=== PATIENT | male | born 1940 | race Caucasian/White ===

== ENCOUNTER 2016-11-08 06:06 | Outpatient (CLI) | payer OTHER ==
[2016-11-08 06:24] LABS: HEMATOCRIT 36.4 % (42.0-52.0); HEMOGLOBIN 12.9 g/dl (14.0-18.0); MEAN CORPUSCULAR HEMOGLOBIN 30.9 pg (27.0-31.0); MEAN CORPUSCULAR HGB CONC 35.4 (31.8-35.4); MEAN CORPUSCULAR VOLUME 87.1 fl (80.0-94.0); RED BLOOD COUNT 4.18 10^6/ul (4.70-6.10); WHITE BLOOD COUNT 4.33 K/ul (4.2-10.2)
[2016-11-08 06:55] LABS: ALBUMIN 3.5 g/dL (3.4-5.0); ALBUMIN/GLOBULIN RATIO 1.3; ANION GAP 8.8; BILIRUBIN,TOTAL 1.08 mg/dL (0.00-1.20); BUN/CREATININE RATIO 17.44; CALCIUM 9.2 mg/dL (8.2-10.2); CHOL/HDL RATIO 2.6 (4.5-6.4); CREATININE 0.86 mg/dL (0.60-1.10); POTASSIUM 3.8 mmol/L (3.5-5.1); TOTAL PROTEIN 6.2 g/dL (5.8-8.1)
== END 2016-11-08 06:07 | disposition home or self-care (01) ==
LOC: LAB 06:06
PROVIDERS: ATTEND Family Medicine
DX: R74.8 Abnormal levels of other serum enzymes (principal); D40.0 Neoplasm of uncertain behavior of prostate; E03.9 Hypothyroidism, unspecified; E78.00 Pure hypercholesterolemia, unspecified
CPT/HCPCS: 36415; 80053; 80061; 83540; 85027

== ENCOUNTER 2017-05-09 06:02 | Outpatient (CLI) ==
[2017-05-09 06:25] LABS: HEMATOCRIT 36.1 % (42.0-52.0); HEMOGLOBIN 12.6 g/dl (14.0-18.0); MEAN CORPUSCULAR HEMOGLOBIN 30.6 pg (27.0-31.0); MEAN CORPUSCULAR HGB CONC 34.9 (31.8-35.4); MEAN CORPUSCULAR VOLUME 87.6 fl (80.0-94.0); RED BLOOD COUNT 4.12 10^6/ul (4.70-6.10); WHITE BLOOD COUNT 4.76 K/ul (4.2-10.2)
[2017-05-09 07:07] LABS: ALBUMIN 3.4 g/dL (3.4-5.0); ALBUMIN/GLOBULIN RATIO 1.17; ANION GAP 13.1; BILIRUBIN,TOTAL 0.77 mg/dL (0.00-1.20); BUN/CREATININE RATIO 14.1; CALCIUM 9.3 mg/dL (8.2-10.2); CHOL/HDL RATIO 2.6 (4.5-6.4); CREATININE 0.78 mg/dL (0.60-1.10); POTASSIUM 4.1 mmol/L (3.5-5.1); TOTAL PROTEIN 6.3 g/dL (5.8-8.1)
== END 2017-05-09 06:03 | disposition home or self-care (01) ==
LOC: LAB 06:02
PROVIDERS: ATTEND Family Medicine
DX: E03.9 Hypothyroidism, unspecified (principal); D40.0 Neoplasm of uncertain behavior of prostate; M81.0 Age-related osteoporosis without current pathological fracture; E78.00 Pure hypercholesterolemia, unspecified; M19.90 Unspecified osteoarthritis, unspecified site
CPT/HCPCS: 36415; 80053; 80061; 82306; 84439; 84443; 85027

== ENCOUNTER 2017-11-27 06:08 | Outpatient (CLI) | payer OTHER | END 2017-11-27 06:09 | disposition home or self-care (01) | LOC: LAB 06:08 | PROVIDERS: ATTEND Family Medicine | DX: D40.0 Neoplasm of uncertain behavior of prostate (principal); D64.9 Anemia, unspecified; E03.9 Hypothyroidism, unspecified; E78.00 Pure hypercholesterolemia, unspecified; H60.322 Hemorrhagic otitis externa, left ear | CPT/HCPCS: 36415; 80053; 80061; 82607; 82746; 83540; 84439; 84443; 85027 ==

== ENCOUNTER 2023-04-23 04:49 | Inpatient (IN) ==
--- NOTE | 2023-04-23 05:47 | ED.PDOC ---
General <KUNAL ALEXANDER MD - Last Filed: 04/23/23 08:10> ED Provider: Dr. KUNAL ALEXANDER Chief Complaint: Fall Stated Complaint: Patient is an 83-year-old male who comes to the emergency department with complaints of losing balance when he got up this morning to go to the bathroom and fell forward. He states that he could not get up after the fall hence called EMS for help. He states he has bruising on the elbows bilaterally and lower back pain. He states that he did not hit his head and denies any headache or neck pain. He states that he is a frequent jamshid due to poor balance. He states he falls about once a week. He denies any significant pain right now to need any medication. He states he recently had trigger finger surgery on the left hand. Time Seen by Provider: 04/23/23 05:34 Mode of Arrival: Ambulance Information Source: Patient Primary Care Provider: LYDIA BEARDEN Nursing and Triage Documentation Reviewed and Agree: Yes Trauma/Injury Complaint Exam <KUNAL ALEXANDER MD - Last Filed: 04/23/23 08:10> Trauma Complaint/Exam Location of Pain or Injury: Reports Back, RLE (Elbow) and LLE (Elbow area) Mechanism of Injury: Reports Fall (Due to loss of balance) Symptoms Are: Still present Initial Severity: Moderate Current Severity: Mild Aggravating: Reports Movement and Palpation Alleviating: Reports Rest Associated Signs and Symptoms: Reports Bruising; Denies LOC, Confusion, Memory loss, Lethargy, Vomiting, Bleeding, Swelling, Extremity disuse, Painful respir ation, Hoarseness, Dysphagia, Hemoptysis or Significant blood loss [place]ow Coma Scale (see protocol): 15 Trauma Findings: Present Limited ROM; Absent [place] eyes, Hemotympanum, Nasal deformity, Dental tenderness, Dental injury, Dental malocclusion, Neck tenderness, Neck spasm, SubQ Air, Crepitus, Airway obstructed, Trachea displaced, Labored respirations, Decreased breath sounds, Muffled heart sounds, Weak pulses, Absent pulses or Gross blood Skin Findings: Present Contusion Differential Diagnoses: Abrasion, Contusions, Fracture, Sprain and Strain Review of Systems <KUNAL ALEXANDER MD - Last Filed: 04/23/23 08:10> Review Of Systems Constitutional: Reports No symptoms Eyes: Reports No symptoms and Other (Hard of hearing) Ears, Nose, Mouth, Throat: Reports No symptoms Respiratory: Reports No symptoms Cardiac: Reports No symptoms GI: Reports No symptoms : Reports No symptoms Musculoskeletal: Reports Back pain, Joint pain and Muscle pain Skin: Reports Bruising Neurological: Reports No symptoms Endocrine: Reports No symptoms All Other Systems: Reviewed and Negative PFSH <KUNAL ALEXANDER MD - Last Filed: 04/23/23 08:10> Medical History (Updated 04/23/23 @ 09:45 by MARY RICH RN) Bladder cancer C67.9 - Malignant neoplasm of bladder, unspecified (ICD-10) Falls W19.XXXA - Unspecified fall, initial encounter (ICD-10) Hypertension I10 - Essential (primary) hypertension (ICD-10) Prostate cancer C61 - Malignant neoplasm of prostate (ICD-10) Seizure R56.9 - Unspecified convulsions (ICD-10) Trigger finger of left hand M65.30 - Trigger finger, unspecified finger (ICD-10) Family History (Updated 04/23/23 @ 09:46 by MARY RICH RN) Mother Cancer FATHER Myocardial infarct Social History (Updated 04/23/23 @ 09:48 by MARY RICH RN) Smoking and tobacco status: Former smoker Surgical History (Updated 04/23/23 @ 09:45 by MARY RICH RN) History of tonsillectomy Z90.89 - Acquired absence of other organs (ICD-10) Hx of appendectomy Z90.49 - Acquired absence of other specified parts of digestive tract (ICD- 10) Hx of knee surgery Z98.890 - Other specified postprocedural states (ICD-10) Physical Exam <KUNAL ALEXANDER MD - Last Filed: 04/23/23 08:10> Physical Exam Appearance: Reports Well-appearing Ill-appearing: None Pain Distress: Mild Eyes: Reports EOMI and Conjunctiva clear ENT: Reports Nose normal and Oropharynx normal Neck: Supple (Tenderness to palpation) Respiratory: Reports Airway patent, Breath sounds clear, Breath sounds diminished (on the right ) and Respirations nonlabored Cardiovascular: Reports RRR, Pulses normal and No rub GI/: Reports Soft, Nontender and No masses Musculoskeletal: Reports Limited ROM (Specially lower back.) Skin: Reports Warm and Dry Neurological: Reports Motor intact, Alert, Oriented and Other (Decreased hearing) Psychiatric: Reports Affect appropriate and Mood appropriate Interpretation <KUNAL ALEXANDER MD - Last Filed: 04/23/23 08:10> EKG Interpretation EKG Interpretation By: ED Physician Time of EKG #1: 07:03 Rate: Normal Rhythm: Sinus Ectopy: None [place]: [place] (At -17 degrees) ST Segment: Normal Interpretation: Normal sinus rhythm normal EKG with no signs of ischemia. Radiology Interpretation Radiology Interpretation By: Radiologist Radiology Results: Positive (Right lung consolidation.) Exam Interpreted: CT Scan Radiology Interpretation By: Radiologist Radiology Results: Negative Exam Interpreted: Other (Elbow x-rays) Physician Notification <KUNAL ALEXANDER MD - Last Filed: 04/23/23 08:10> Case Discussed Endorsed To/Discussed With: Trixie Time of Discussion: 07:00 Critical Care Note <KUNAL ALEXANDER MD - Last Filed: 04/23/23 08:10> Critical Care Note Total Critical Care Time (mins): 0 Course <KUNAL ALEXANDER MD - Last Filed: 04/23/23 08:10> Course 04/23/23 07:02 04/23/23 07:02 Orders, Labs, Meds: Lab Review 04/23/23 04/23/23 07:02 08:00 WBC 10.19 RBC 3.52 L Hgb 10.5 L Hct 30.7 L MCV 87.2 MCH 29.8 MCHC 34.2 RDW Coeff of Angelita 14.5 Plt Count 172 Immature Gran % (Auto) 0.5 Neut % (Auto) 83.0 H Lymph % (Auto) 3.6 L [place] % (Auto) 12.6 H Eos % (Auto) 0.2 Baso % (Auto) 0.1 Neut # (Auto) 8.5 H Lymph # (Auto) 0.4 L [place] # (Auto) 1.3 Eos # (Auto) 0.0 Baso # (Auto) 0.0 Immature Gran # (Auto) 0.1 Sodium 123.6 L Potassium 3.94 Chloride 88.9 L Carbon Dioxide 26.6 Anion Gap 12.04 BUN 11.7 Creatinine 0.55 L Estimated GFR (MDRD) 142.00 BUN/Creatinine Ratio 21.27 Glucose 106.3 H Lactic Acid 1.04 Calcium 9.00 Total Bilirubin 0.91 AST 33.1 ALT 11.7 Alkaline Phosphatase 64.5 Total Creatine Kinase 55.7 Troponin I 0.022 Total Protein 6.73 Albumin 3.62 Globulin 3.11 Albumin/Globulin Ratio 1.16 Procalcitonin < 0.05 SARS CoV-2 RNA Rapid MARK Negative Orders Category Date Time Status EKG-(ED ONLY) Stat CARDIO 04/23/23 06:42 Completed ED LENS GRINDER ROUGH APPLIED .ONCE EMERGENCY 04/23/23 06:42 Active ED IV/MEDIPORT/POWERPORT .ONCE EMERGENCY 04/23/23 06:42 Active BLOOD CULTURE (ED ONLY) Stat LAB 04/23/23 07:02 Received CBC W/ AUTO DIFF Stat LAB 04/23/23 07:02 Completed COMPREHENSIVE METABOLIC PANEL Stat LAB 04/23/23 07:02 Completed COVID [SARS COV-2 RNA RAPID MARK] Stat LAB 04/23/23 08:00 Completed CREATINE KINASE Stat LAB 04/23/23 07:02 Completed LACTIC ACID Stat LAB 04/23/23 07:02 Completed PROCALCITONIN Stat LAB 04/23/23 07:02 Completed TROPONIN I Stat LAB 04/23/23 07:02 Completed 0.9 % Sodium Chloride [Saline Flush] Meds 04/23/23 06:42 Active 1 syr IVF PRN PRN CT CHEST W/O CONTRAST Stat RADS 04/23/23 05:[address] LUMBAR SPINE W/O CONTRAST Stat RADS 04/23/23 05:[address] PELVIS W/O CONTRAST Stat RADS 04/23/23 05:40 Completed ELBOW, LEFT MIN 3 VIEWS Stat RADS 04/23/23 05:40 Completed ELBOW, RIGHT MIN 3 VIEWS Stat RADS 04/23/23 05:40 Completed Medications Generic Name Dose Route Start Last Admin Trade Name Freq PRN Reason Stop Dose Admin Acetaminophen 650 mg 04/23/23 08:30 Acetaminophen 325 Mg Tablet PO Q4H PRN Mild Pain Levofloxacin/Dextrose 750 mg in 150 mls @ 100 mls/hr 04/23/23 09:00 04/23/23 09:24 Levaquin 750 Mg/150 Ml D5w IV 04/26/23 08:59 100 mls/hr DAILY ISAURO Administration Sodium Chloride 500 mls @ 30 mls/hr 04/23/23 12:00 Sodium Chloride 3% IV .[id number] ISAURO Sodium Chloride 1 syr 04/23/23 06:42 0.9% Sodium Chloride 10 Ml Disp.Syrin IVF PRN PRN To flush IV Discontinued Medications Generic Name Dose Route Start Last Admin Trade Name Nickie PRN Reason Stop Dose Admin Sodium Chloride 1,000 mls @ 75 mls/hr 04/23/23 08:30 04/23/23 09:23 Sodium Chloride IV 75 mls/hr .[id number] ISAURO Administration Vital Signs: Temp Pulse Resp BP Pulse Ox 04/23/23 04:50 97.8 F 74 18 138/70 97 <TRIXIE AVILA MD - Last Filed: 04/23/23 11:59> Course Orders, Labs, Meds: Lab Review 04/23/23 04/23/23 07:02 08:00 WBC 10.19 RBC 3.52 L Hgb 10.5 L Hct 30.7 L MCV 87.2 MCH 29.8 MCHC 34.2 RDW Coeff of Angelita 14.5 Plt Count 172 Immature Gran % (Auto) 0.5 Neut % (Auto) 83.0 H Lymph % (Auto) 3.6 L [place] % (Auto) 12.6 H Eos % (Auto) 0.2 Baso % (Auto) 0.1 Neut # (Auto) 8.5 H Lymph # (Auto) 0.4 L [place] # (Auto) 1.3 Eos # (Auto) 0.0 Baso # (Auto) 0.0 Immature Gran # (Auto) 0.1 Sodium 123.6 L Potassium 3.94 Chloride 88.9 L Carbon Dioxide 26.6 Anion Gap 12.04 BUN 11.7 Creatinine 0.55 L Estimated GFR (MDRD) 142.00 BUN/Creatinine Ratio 21.27 Glucose 106.3 H Lactic Acid 1.04 Calcium 9.00 Total Bilirubin 0.91 AST 33.1 ALT 11.7 Alkaline Phosphatase 64.5 Total Creatine Kinase 55.7 Troponin I 0.022 Total Protein 6.73 Albumin 3.62 Globulin 3.11 Albumin/Globulin Ratio 1.16 Procalcitonin < 0.05 SARS CoV-2 RNA Rapid MARK Negative Orders Category Date Time Status EKG-(ED ONLY) Stat CARDIO 04/23/23 06:42 Completed ED LENS GRINDER ROUGH APPLIED .ONCE EMERGENCY 04/23/23 06:42 Active ED IV/MEDIPORT/POWERPORT .ONCE EMERGENCY 04/23/23 06:42 Active BLOOD CULTURE (ED ONLY) Stat LAB 04/23/23 07:02 Received CBC W/ AUTO DIFF Stat LAB 04/23/23 07:02 Completed COMPREHENSIVE METABOLIC PANEL Stat LAB 04/23/23 07:02 Completed COVID [SARS COV-2 RNA RAPID MARK] Stat LAB 04/23/23 08:00 Completed CREATINE KINASE Stat LAB 04/23/23 07:02 Completed LACTIC ACID Stat LAB 04/23/23 07:02 Completed PROCALCITONIN Stat LAB 04/23/23 07:02 Completed TROPONIN I Stat LAB 04/23/23 07:02 Completed 0.9 % Sodium Chloride [Saline Flush] Meds 04/23/23 06:42 Active 1 syr IVF PRN PRN CT CHEST W/O CONTRAST Stat RADS 04/23/23 05:[address] LUMBAR SPINE W/O CONTRAST Stat RADS 04/23/23 05:[address] PELVIS W/O CONTRAST Stat RADS 04/23/23 05:40 Completed ELBOW, LEFT MIN 3 VIEWS Stat RADS 04/23/23 05:40 Completed ELBOW, RIGHT MIN 3 VIEWS Stat RADS 04/23/23 05:40 Completed Medications Generic Name Dose Route Start Last Admin Trade Name Freq PRN Reason Stop Dose Admin Acetaminophen 650 mg 04/23/23 08:30 Acetaminophen 325 Mg Tablet PO Q4H PRN Mild Pain Levofloxacin/Dextrose 750 mg in 150 mls @ 100 mls/hr 04/23/23 09:00 04/23/23 09:24 Levaquin 750 Mg/150 Ml D5w IV 04/26/23 08:59 100 mls/hr DAILY ISAURO Administration Sodium Chloride 500 mls @ 30 mls/hr 04/23/23 12:00 Sodium Chloride 3% IV .[id number] ISAURO Sodium Chloride 1 syr 04/23/23 06:42 0.9% Sodium Chloride 10 Ml Disp.Syrin IVF PRN PRN To flush IV Discontinued Medications Generic Name Dose Route Start Last Admin Trade Name Freq PRN Reason Stop Dose Admin Sodium Chloride 1,000 mls @ 75 mls/hr 04/23/23 08:30 04/23/23 09:23 Sodium Chloride IV 75 mls/hr .[id number] ISAURO Administration Vital Signs: Temp Pulse Resp BP Pulse Ox 04/23/23 04:50 97.8 F 74 18 138/70 97 Discharge Plan Discharge Patient Disposition: ADMITTED INPATIENT Discharge Problem: Hyponatremia, Muscle weakness, At risk for falls, Pneumonia Did you review [place] [employer] for ALL controlled substances?: Not Applicable ED Provider: TRIXIE AVILA Condition: Stable <KUNAL ALEXANDER MD - Last Filed: 04/23/23 08:10> Physician Progress Note: [Discussed CT of the chest findings with patient and family regarding unexpected finding of consolidation consistent with pneumonia. It is also possible patient may have a neoplasm that cannot be excluded at this time and would need further testing including CT contrast of the chest. In the meantime we will do a work-up and treat for pneumonia. Patient however is not complaining of any cough or congestion but does admit to have lost some weight. He probably also needs to be admitted also due to multiple falls and weakness for to get physical therapy for strength training and falls prevention.] <TRIXIE AVILA MD - Last Filed: 04/23/23 11:59> Physician Progress Note: [Discussed CT of the chest findings with patient and family regarding unexpected finding of consolidation consistent with pneumonia. It is also possible patient may have a neoplasm that cannot be excluded at this time and would need further testing including CT contrast of the chest. In the meantime we will do a work-up and treat for pneumonia. Patient however is not complaining of any cough or congestion but does admit to have lost some weight. 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
--- NOTE | 2023-04-23 06:19 | CT ---
EXAM: CT PELVIS WITHOUT CONTRAST. HISTORY: Lower back pain from fall. PROCEDURE: Contiguous axial CT images of the pelvis without contrast with coronal and sagittal refor mats. FINDINGS: The visualized loops of bowel are normal in appearance. No free air in the pelvis. There is minimal low density free fluid layering in the dependent pelvis. The bladder is adequately filled and normal in appearance. There are surgical clips in the prostate gland. The bones are intact wit h no evidence of fracture. The joint spaces are maintained. There are degenerative changes in the s pine. Impression: No evidence of fracture. Minimal free fluid in the pelvis. All CT scans are performed using dose optimization techniques as appropriate to the performed exam an d include at least one of the following: Automated exposure control, adjustment of the mA and/or kV according t o size, and the use of iterative reconstruction technique.
--- NOTE | 2023-04-23 06:23 | CT ---
EXAM: CT OF THE LUMBAR SPINE WITHOUT CONTRAST. HISTORY: Fall. Pain. PROCEDURE: Contiguous axial CT images of the lumbar spine without contrast with multiplanar reformat s. All CT scans are performed using dose optimization techniques as appropriate to a performed exam including the following: Automated exposure control, Adjustment of the mA and/or kV according to alley ent size, Use of iterative reconstruction technique. FINDINGS: There is mild levoscoliosis of the lumbar spine. There is normal alignment of the lumbar v ertebral bodies and facets. There are chronic anterior wedge compression deformities of the T11-L1 v ertebral bodies. No evidence of acute fracture. There are is a 0.7 cm sclerotic lesion in the L5 ve rtebral body. There is multilevel disc space narrowing and vacuum disc phenomenon. There are disc osteophyte complexes at L4-5 and L5-S1. There is multilevel facet arthropathy. Impression: No evidence of acute fracture. Chronic anterior wedge compression deformities of the T11-L1 vertebral bodies. Disc osteophyte complexes at L4-5 and L5-S1. 0.7 cm sclerotic lesion in the L5 vertebral body. The differential diagnosis includes bone island an d metastatic disease. Normal alignment lumbar spine with degenerative changes as described. All CT scans are performed using dose optimization techniques as appropriate to the performed exam an d include at least one of the following: Automated exposure control, adjustment of the mA and/or kV according t o size, and the use of iterative reconstruction technique.
--- NOTE | 2023-04-23 06:30 | CT ---
EXAM: CT CHEST WITHOUT CONTRAST. HISTORY: Left rib pain and confusion. PROCEDURE: Contiguous axial CT images of the chest without contrast with coronal and sagittal reform ats. FINDINGS: The heart is enlarged. The thoracic aorta is within normal limits in size. There are enl arged pretracheal and subcarinal lymph nodes measuring up to 1.6 cm in short axis. There is mild pul monary edema. There is a moderate layering right pleural effusion. There are right lung infiltrates and consolidation, consistent with pneumonia. There is left basilar dependent atelectasis. There a re chronic anterior wedge compression deformities at multiple levels of the spine. There are sclerot ic lesions in the T5 and T6 vertebral bodies measuring up to 0.9 cm. Impression: Right lung consolidation, consistent with pneumonia. Cardiomegaly with mild pulmonary edema. Right pleural effusion as described. Lymphadenopathy as described which may be reactive or neoplastic. Sclerotic lesions in the thoracic spine as described, suspicious for metastatic disease. Left basilar dependent atelectasis. All CT scans are performed using dose optimization techniques as appropriate to the performed exam an d include at least one of the following: Automated exposure control, adjustment of the mA and/or kV according t o size, and the use of iterative reconstruction technique.
--- NOTE | 2023-04-23 06:49 | DI ---
EXAM: RIGHT ELBOW THREE VIEW. HISTORY: Fall. FINDINGS: The bones are intact with no evidence of fracture. The joint spaces are maintained. No so ft tissue abnormality. Impression: Negative right elbow.
--- NOTE | 2023-04-23 06:51 | DI ---
EXAM: LEFT ELBOW THREE VIEW. HISTORY: Trauma. FINDINGS: The bones are intact with no evidence of fracture. The joint spaces are maintained. There is degenerative spurring along the coronoid process of the ulna. No soft tissue abnormality. Impression: No evidence of fracture. Degenerative change as described.
[2023-04-23 07:07] LABS: BASOPHILS % (AUTO) 0.1 % (0.0-3.0); EOSINOPHILS % (AUTO) 0.2 % (0.0-7.0); HEMATOCRIT 30.7 % (42.0-52.0); HEMOGLOBIN 10.5 g/dl (14.0-18.0); IMMATURE GRANULOCYTE # (AUTO) 0.1 (0.0-1.0); IMMATURE GRANULOCYTE % (AUTO) 0.5 % (0.0-5.0); LYMPHOCYTES # (AUTO) 0.4 K/uL (0.60-3.4); LYMPHOCYTES % (AUTO) 3.6 (10.0-50.0); MEAN CORPUSCULAR HEMOGLOBIN 29.8 pg (27.0-31.0); MEAN CORPUSCULAR HGB CONC 34.2 (31.8-35.4); MEAN CORPUSCULAR VOLUME 87.2 fl (80.0-94.0); MONOCYTES # (AUTO) 1.3 K/uL (0.4-2.0); MONOCYTES % (AUTO) 12.6 (0-10); NEUTROPHILS # (AUTO) 8.5 K/ul (2.0-6.9); PLATELET COUNT 172 10^3/uL (140-440); RDW COEFFICIENT OF VARIATION 14.5 % (11.6-14.8); RED BLOOD COUNT 3.52 10^6/ul (4.70-6.10); WHITE BLOOD COUNT 10.19 K/ul (4.2-10.2)
[2023-04-23 07:21] LABS: ALANINE AMINOTRANSFERASE 11.7 U/L (0-50); ALBUMIN 3.62 g/dL (3.5-5.0); ALKALINE PHOSPHATASE 64.5 U/L (56-119); ASPARTATE AMINO TRANSFERASE 33.1 U/L (17-59); BILIRUBIN,TOTAL 0.91 mg/dL (0.2-1.3); BLOOD UREA NITROGEN 11.7 mg/dL (9-20); CARBON DIOXIDE 26.6 mmol/L (22-30.0); CHLORIDE 88.9 mmol/L (98-107); CREATINE KINASE 55.7 U/L (55-170); CREATININE 0.55 mg/dL (0.60-1.10); GLUCOSE 106.3 mg/dL (74-106); POTASSIUM 3.94 mmol/L (3.5-5.1); SODIUM 123.6 mmol/L (134.5-145); TOTAL PROTEIN 6.73 g/dL (6.3-8.2)
[2023-04-23 07:32] LABS: TROPONIN I 0.022 ng/ml (0.0000-0.120)
[2023-04-23 08:20] LABS: SARS COV-2 RNA RAPID NAAT NEGATIVE (NEGATIVE)
[2023-04-23] MEDS ORDERED: SODIUM CHLORIDE 1,000 ML IV SCH (08:30)
[2023-04-23] MEDS: LEVAQUIN 750 MG/150 ML D5W 750 MG/150 ML BAG IV SCH (09:24)
[2023-04-23 09:30] VITALS: BMI 21.9
--- NOTE | 2023-04-23 12:17 | PCM ---
Date of Service Date Seen by Provider: 04/23/23 Time Seen by Provider: 10:30 Admit Day/Time Admission Date: 04/23/23 Reason for Admission Chief Complaint: PNEUMONIA, HYPONATREMIA, POSS METASTATIC PROSTATE Hospital Provider Hospital Provider: VALERIE BABB, [facility] [place] Primary Care Physician: LYDIA BEARDEN History of Present Illness History of Present Illness: 83 yo male presented to the ER following multiple falls at home. Most recently fell last night getting up to use the bathroom. Fell backwards onto both elbows. Denies hitting his head or loss of consciousness. Incidentally, pneumonia was reported on chest CT. Patient reports cough but no other symptoms. Denies fever, shortness of breath, chest pain, N/V/D. CT of lumbar spine showed 0.7 cm sclerotic lesion at the L5 verbral body suspicious for metastatic disease. Daughter/POA voiced concerns of safety in the home due to worsening mental status and physical condition. Case Discussed With Case Discussed With: Patient's case was discussed with the ER Physicians, Dr. Santos [facility] Medical History (Updated 04/23/23 @ 12:02 by VALERIE BABB) Anemia D64.9 - Anemia, unspecified (ICD-10) Arthritis M19.90 - Unspecified osteoarthritis, unspecified site (ICD-10) Bladder cancer C67.9 - Malignant neoplasm of bladder, unspecified (ICD-10) Closed fracture of transverse process of lumbar vertebra S32.009A - Unspecified fracture of unspecified lumbar vertebra, initial encounter for closed fracture (ICD-10) Colonic polyp K63.5 - Polyp of colon (ICD-10) Falls W19.XXXA - Unspecified fall, initial encounter (ICD-10) GERD (gastroesophageal reflux disease) K21.9 - Gastro-esophageal reflux disease without esophagitis (ICD-10) Hyperlipidemia E78.5 - Hyperlipidemia, unspecified (ICD-10) Hypertension I10 - Essential (primary) hypertension (ICD-10) Prostate cancer C61 - Malignant neoplasm of prostate (ICD-10) Seizure R56.9 - Unspecified convulsions (ICD-10) Thyroid disease E07.9 - Disorder of thyroid, unspecified (ICD-10) TIA (transient ischemic attack) G45.9 - Transient cerebral ischemic attack, unspecified (ICD-10) Trigger finger of left hand M65.30 - Trigger finger, unspecified finger (ICD-10) Surgical History (Updated 04/23/23 @ 12:02 by VALERIE BABB) History of tonsillectomy Z90.89 - Acquired absence of other organs (ICD-10) Hx laparoscopic cholecystectomy Z90.49 - Acquired absence of other specified parts of digestive tract (ICD- 10) Hx of appendectomy Z90.49 - Acquired absence of other specified parts of digestive tract (ICD- 10) Hx of knee surgery Z98.890 - Other specified postprocedural states (ICD-10) S/P TURP Z90.79 - Acquired absence of other genital organ(s) (ICD-10) Family History Mother Cancer FATHER Myocardial infarct Social History Smoking and tobacco status: Former smoker Allergies Allergies Allergy/AdvReac Type Severity Reaction Status Date / Time No Known Allergies Allergy Verified 04/23/23 09:51 Current Medications Home Medications amlodipine 5 mg tablet 5 mg PO DAILY 11/25/13 [History Confirmed 04/23/23 Last Taken 11/25/13] aspirin 81 mg tablet,delayed release 81 mg PO DAILYWM 11/25/13 [History Confirmed 04/23/23 Last Taken 04/22/23] divalproex 500 mg tablet,delayed release 500 mg PO TID 11/25/13 [History Confirmed 04/23/23 Last Taken 11/24/13] finasteride 5 mg tablet 5 mg PO DAILY 11/25/13 [History Confirmed 04/23/23 Last Taken 04/22/23] levothyroxine 125 mcg tablet 125 mcg PO DAILY 11/25/13 [History Confirmed 04/23/23 Last Taken 04/22/23] multivitamin (Daily Multi-Vitamin tablet) 1 ea PO DAILY 11/25/13 [History Confirmed 04/23/23 Last Taken 11/25/13] pravastatin 20 mg tablet 20 mg PO BEDTIME 11/25/13 [History Confirmed 04/23/23 Last Taken 04/22/23] tamsulosin 0.4 mg capsule 0.4 mg PO DAILY 11/25/13 [History Confirmed 04/23/23 Last Taken 11/24/13] acetaminophen 500 mg capsule 1,000 mg PO TID 04/23/23 [History Confirmed 04/23/23 Last Taken 04/22/23] divalproex 500 mg tablet,delayed release (Depakote) 1,000 mg PO BEDTIME 04/23/23 [History Confirmed 04/23/23 Last Taken 04/22/23] divalproex 500 mg tablet,delayed release (Depakote) 500 mg PO DAILY 04/23/23 [History Confirmed 04/23/23 Last Taken 04/22/23] furosemide 20 mg tablet (Lasix) 20 mg PO MOWEFR takes once a day on saturday, saturday,saturday04/23/23 [History Confirmed 04/23/23 Last Taken 04/22/23] levocetirizine 5 mg tablet 5 mg PO DAILY 04/23/23 [History Confirmed 04/23/23 Last Taken 04/22/23] metoprolol succinate 50 mg tablet,extended release 24 hr 50 mg PO DAILY 04/23/23 [History Confirmed 04/23/23 Last Taken 04/22/23] oxybutynin chloride 5 mg tablet 5 mg PO DAILY 04/23/23 [History Confirmed 04/23/23 Last Taken 04/22/23] Home Acetaminophen (Acetaminophen 325 Mg Tablet) 650 mg PO Q4H PRN PRN Reason: Mild Pain Levofloxacin/Dextrose (Levaquin 750 Mg/150 Ml D5w) 750 mg in 150 mls @ 100 mls/hr IV DAILY [facility] Stop: 04/26/23 08:59 Last Admin: 04/23/23 09:24 Dose: 100 mls/hr Sodium Chloride (Sodium Chloride 3%) 500 mls @ 30 mls/hr IV .[id number] [facility] Sodium Chloride (0.9% Sodium Chloride 10 Ml Disp.Syrin) 1 syr IVF PRN PRN PRN Reason: To flush IV Discontinued Medications Sodium Chloride (Sodium Chloride) 1,000 mls @ 75 mls/hr IV .[id number] [facility] Last Admin: 04/23/23 09:23 Dose: 75 mls/hr Review of Systems Constitutional: Reports No symptoms Head: Reports Normocephalic and Atraumatic Eyes: Reports No symptoms Ears: Reports No symptoms Nose: Reports No symptoms Mouth: Reports No symptoms Throat: Reports No symptoms Cardiovascular: Reports No symptoms Respiratory: Reports Cough Gastrointestinal: Reports No symptoms Genitourinary: Reports No Symptoms Musculoskeletal: Reports Back Pain Endocrine: Reports No symptoms Hematology: Reports No symptoms Immunology: Reports No symptoms Neurological: Reports No symptoms Psychiatric: Reports No symptoms Physical examination Most Recent Vital Signs: Most Recent Vital Signs Temperature 97.0 F L 04/23/23 09:09 Temperature Source Temporal Artery Scan 04/23/23 09:09 Temperature Source Infrared 04/23/23 04:50 Pulse Rate 77 04/23/23 09:09 Respiratory Rate 16 04/23/23 09:09 Blood Pressure 138/70 04/23/23 04:50 Blood Pressure Left Arm 157/78 04/23/23 09:09 Blood Pressure Position Supine 04/23/23 09:09 O2 Sat by Pulse Oximetry 98 04/23/23 09:09 Oxygen Delivery Method Room Air 04/23/23 09:09 Height 5 ft 9 in 04/23/23 09:09 Weight 148 lb 9 oz 04/23/23 09:09 Telemetry Type Remote Telemetry 04/23/23 09:15 Telemetry Monitoring Started 04/23/23 09:15 Telemetry Heart Rate 72 04/23/23 09:15 EKG [place] Interval 0.13 04/23/23 09:15 EKG QRS Interval 0.05 L 04/23/23 09:15 Telemetry Strip Reading SR 04/23/23 09:15 Appearance: Positive No Apparent Distress Skin: Positive Warm HEENT: Positive Normocephalic, Atraumatic and PERRLA Neck: Positive Midline Trachea Chest/Lungs: Positive Symmetrical With Equal Breath Sounds, Clear to Auscultation Bilaterally and Good Air Movement all 4 Lung Danielle Heart: Positive RRR and Pulses Normal GI/: Positive Soft, Nontender and Bowel Sounds Normal Musculoskeletal: Positive Not Examined Extremities: Positive Edema (+2 pitting edema BLE), Intact Peripheral Pulses, Stable Joints Without Laxity and Good ROM in All Joints Neurological: Positive Sensation Intact, Motor intact, Reflexes Intact, Alert, Disorinted and Muscle Strength 5/5 in Upper and Lower Extremities Bilaterally (generalized weakness) Psychiatric: Positive Appropriate Mood and Appropriate Affect Labs This Visit Labs This Visit: Labs This Visit 04/23/23 04/23/23 07:02 08:00 WBC 10.19 RBC 3.52 L Hgb 10.5 L Hct 30.7 L MCV 87.2 MCH 29.8 MCHC 34.2 RDW Coeff of Angelita 14.5 Plt Count 172 Immature Gran % (Auto) 0.5 Neut % (Auto) 83.0 H Lymph % (Auto) 3.6 L Stark % (Auto) 12.6 H Eos % (Auto) 0.2 Baso % (Auto) 0.1 Neut # (Auto) 8.5 H Lymph # (Auto) 0.4 L Stark # (Auto) 1.3 Eos # (Auto) 0.0 Baso # (Auto) 0.0 Immature Gran # (Auto) 0.1 Sodium 123.6 L Potassium 3.94 Chloride 88.9 L Carbon Dioxide 26.6 Anion Gap 12.04 BUN 11.7 Creatinine 0.55 L Estimated GFR (MDRD) 142.00 BUN/Creatinine Ratio 21.27 Glucose 106.3 H Lactic Acid 1.04 Calcium 9.00 Total Bilirubin 0.91 AST 33.1 ALT 11.7 Alkaline Phosphatase 64.5 Total Creatine Kinase 55.7 Troponin I 0.022 Total Protein 6.73 Albumin 3.62 Globulin 3.11 Albumin/Globulin Ratio 1.16 Procalcitonin < 0.05 SARS CoV-2 RNA Rapid MARK Negative Imaging Imaging: EXAM: PA and lateral views of the chest IMPRESSION: No acute cardiopulmonary process EXAM: CT OF THE LUMBAR SPINE WITHOUT CONTRAST. Impression: No evidence of acute fracture. Chronic anterior wedge compression deformities of the T11-L1 vertebral bodies. Disc osteophyte complexes at L4-5 and L5-S1. 0.7 cm sclerotic lesion in the L5 vertebral body. The differential diagnosis includes bone island and metastatic disease. Normal alignment lumbar spine with degenerative changes as described. EXAM: CT CHEST WITHOUT CONTRAST. Impression: Right lung consolidation, consistent with pneumonia. Cardiomegaly with mild pulmonary edema. Right pleural effusion as described. Lymphadenopathy as described which may be reactive or neoplastic. Sclerotic lesions in the thoracic spine as described, suspicious for metastatic disease. Left basilar dependent atelectasis. Review Statement Review Statement: I have independently reviewed and interpreted the labs/EKGs/imaging that were ordered by the ER provider. I have reviewed all outside records that are available currently in our EMR including imaging/notes/labs from previous visits. Plan Plan: 1. Severe Hyponatremia - 3% saline @ 30mL/hr, serial bmps, telemetry, checking osmolalities 2. Community Acquired Pneumonia - R lung, levaquin ordered 3. 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 CHF, unknown type - holding diuretics at this time due to #1, I&O, daily weight, SANDY hose 5. Hypertension - chronic, stable, continue home medications 6. Hyperlipidemia - chronic, continue home medications 7. Weakness/Debility/Frequent Falls - PT/OT to eval and treat, possible fci placement once medically stable DVT Prophylaxis: Ambulation Time Spent: Greater than 80 minutes spent with patient, 50% of the time spent with this patient was devoted to counseling and coordination of care. Advanced Care Plannin minutes spent discussing advance care planning. Disposition: Admit to: Med/Surg Inpatient DNR Discussed Plan of Care with Dr. Diane Preciado. Medications Medication Orders: Medications Ordered Category Date Time Status 0.9 % Sodium Chloride [Saline Flush] Meds 04/23/23 06:42 Active 1 syr IVF PRN PRN Acetaminophen [Tylenol] Meds 04/23/23 08:30 Active 650 mg PO Q4H PRN Levofloxacin/D5w [Levaquin 750 mg/150 ml D5w] Meds 04/23/23 09:00 Active 750 mg in 150 ml IV DAILY SODIUM CHLORIDE 3% @ 30 MLS/HR(500ml) Meds 04/23/23 12:00 Ordered Sodium Chloride 3% 500 ml IV 30 mls/hr
[2023-04-23] MEDS: SODIUM CHLORIDE 3% 500 ML IV SCH (12:39)
[2023-04-23] MEDS ORDERED: DEPAKOTE PO ONE (14:33)
--- NOTE | 2023-04-23 14:47 | RS.PTINEVL ---
Subjective Patient information Date of Evaluation: 04/23/23 Date of Arrival on Unit: 04/23/23 Admitted From:: Home Diagnosis: fall, pneumonia Usual Living Arrangement: With Spouse Living Arrangement Comments: lives with elderly spouse. Family is looking into possible assisted living. Home Environment: House, Stairs (few) and Rail Medical History: Hypertension, CVA/TIA, Arthritis and Cancer (prostate and bladder CA) Medical History Comments:: anemia, seizure, thyroid dz, fx of transverse process of lumbar spine LATEX ALLERGY?: No Surgical History: Cholecystectomy Surgical History Comments:: knee surgery, appey, TURP, Trigger point release L hand 04/22/23 Medications: see chart Subjective Information/ Patient Comments:: pt states that he fell at home and hit his face. pt states that he wants to walk. Daughter with multiple questions regarding pt safety. States that they are considering assisted living for her parents. Level of function Prior to this admission, the patient could do the following:: Independent ADL's, Independent Ambulation (pt occasionally uses rollator at home.), Perform Manager [employer]ing and Drive Abilities prior to this admission: pt has had multiple falls at home. pt was attending outpatient PT prior to fall. Current Level of Function: Partially Dependent Current Equipment Used at Home: walker, cane Pain Assessement Location lumbar : Description: Dull, Throbbing and Aching Pain Behavior: Facial Grimacing Pain Aggravating Factors: Standing and Walking Pain Alleviating Factors: Medication Interventions Objective Patient Orientation: Person and Place Current Interventions: IV's and Telemetry Observation: pt with bruise on L cheek, Dressing in place to L hand Pitting edema BLE pt KAKE Range of Motion ROM Right Upper Extremity AROM: WFL's Left Upper Extremity AROM: WFL's (L hand not tested due to recent surgery) Right Lower Extremity AROM: WFL's Left Lower Extremity AROM: WFL's Muscle Strength Muscle Strength Right Upper Extremity: Mild Weakness (grossly 4/5 ) Left Upper Extremity: Mild Weakness (grossly 4/5 ) Right Lower Extremity: Mild Weakness (hip flex 4/5, knee flex/ext 4/5 , ankle DF/PF 4/5 ) Left Lower Extremity: Mild Weakness (hip flex 4/5, knee flex/ext 4/5 , ankle DF/PF 4/5) Sensation Sensation Right Upper Extremity: Intact/Normal Left Upper Extremity: Intact/Normal Right Lower Extremity: Intact/Normal Left Lower Extremity: Intact/Normal Palpation Palpation Findings: Tenderness (lumbar ) Balance Sitting Balance and Reactions Static Sitting Balance: Good Dynamic Sitting Balance: Fair (fair+) Standing Balance and Reactions Static Standing Balance: Poor Dynamic Standing Balance: Poor Standing Equilibrium Reactions: Delayed Left and Delayed Right Standing Protective Reactions: Delayed Left and Delayed Right Comments Balance Assessment Comments: (will do tinetti on next visit) Functional Mobility Bed Mobility Comments:: pt seen up on toilet Transfers Sit to Stand: CGA Stand to Sit: CGA Safety Awareness Safety Awareness: Poor (pt is impulsive at times) ANNE INDEX SCORE: n/a Ambulation Ambulation Assistive Device Used: Rollator Orthotic/Prosthetic Device: No Distance: 220ft Assistance needed with Ambulation: CGA (x1 +1 for IV ) Quality of Ambulation: pt amb with flexed posture Gait Deviations: Forward posture, Short stride and Deviates from path Factors Affecting Ambulation: Decreased Balance, Pain, Weakness, Decreased Coordination, Decreased Safety, Cognitive Status and Limited Endurance Treatment time Units charged Gait trainin Time with patient Length of Evaluation: 19 Total treatment time: 31 Patient Education Education Patient Education: Activity Modification and Education of Plan of Care Teaching Recipient: Patient and Family Teaching Methods: Discussion Comments: discussion regarding POC Assessment Assessment Problem List:: Decreased level of function, Requires training/education, Decreased safety/Risk of falls, Weakness, Pain limits previous level of function and Cognitive status limits abilities Rehab Potential: Good Further Therapy Indicated?: Yes Candidate for Swing Bed for Therapy Services?: Will need to reassess when closer to 3 day stay. Evaluation Complexity: HISTORY: Medium, EXAM OF BODY SYSTEMS: Medium, CLINICAL PRESENTATION: Medium and CLINICAL DECISION MAKING: Medium Patient's Goal(s): "I want to get stronger and work on my balance." Short Term Goals GOAL #1: pt demonstrate rolling and scooting up in bed independently. Goal to be met by: 04/25/23 GOAL #2: Transfer sup to/from sit CGA Goal to be met by: 04/25/23 GOAL #3: Transfer sit to/from stand SBA Goal to be met by: 04/25/23 GOAL #4: pt amb 150ft with rollator with CGA x 1 with improved sequencing/posture Goal to be met by: 04/25/23 GOAL #5: Improve static stand fair- Goal to be met by: 04/25/23 [facility] Goals GOAL #1: pt transfer sup to/from sit to/from stand SBA to independent. Goal to be met by: 04/29/23 GOAL #2: pt amb functional household distances with rollator with SBA Goal to be met by: 04/29/23 GOAL #3: Dyn stand balance improved allow to reach away/across midline no LOB Goal to be met by: 04/29/23 Plan Plan of Care: Therapeutic EX, Neuromuscular Re-Educ and Therapeutic Activity Other:: gait training Frequency of Treatment: 1-2 X day, as tolerated Duration of Treatment: 5 -6days Anticipated Discharge Destination: undetermined Treatment Diagnosis (ICD 10 Codes): falls R 29.6 impaired balance R 26.81 difficulty walking R 26.2 weakness M62.81 Has the Physician been added for Co-signature?: Yes
[2023-04-23 16:21] LABS: BLOOD UREA NITROGEN 8.9 mg/dL (9-20); CALCIUM 8.35 mg/dL (8.4-10.2); CARBON DIOXIDE 26.8 mmol/L (22-30.0); CHLORIDE 90.1 mmol/L (98-107); CREATININE 0.55 mg/dL (0.60-1.10); GLUCOSE 96.6 mg/dL (74-106); POTASSIUM 3.83 mmol/L (3.5-5.1); SODIUM 123.6 mmol/L (134.5-145)
[2023-04-23] MEDS: SODIUM CHLORIDE PO SCH ×2 (18:12→20:20)
[2023-04-23] MEDS ORDERED: VISTARIL PO ONE (20:03)
[2023-04-23] MEDS: PRAVACHOL PO SCH (20:20)
[2023-04-23] MEDS: DEPAKOTE PO SCH (20:20)
[2023-04-23 22:28] LABS: CALCIUM 8.4 mg/dL (8.4-10.2); CREATININE 0.6 mg/dL (0.60-1.10); POTASSIUM 3.5 mmol/L (3.5-5.1)
[2023-04-24] MEDS: SODIUM CHLORIDE 3% 500 ML IV SCH (04:58)
[2023-04-24 05:24] LABS: BASOPHILS % (AUTO) 0.4 % (0.0-3.0); EOSINOPHILS # (AUTO) 0.1 K/ul (0.0-0.7); EOSINOPHILS % (AUTO) 0.9 % (0.0-7.0); HEMATOCRIT 30.1 % (42.0-52.0); HEMOGLOBIN 10.3 g/dl (14.0-18.0); IMMATURE GRANULOCYTE % (AUTO) 0.3 % (0.0-5.0); LYMPHOCYTES # (AUTO) 0.9 K/uL (0.60-3.4); LYMPHOCYTES % (AUTO) 12.7 (10.0-50.0); MEAN CORPUSCULAR HEMOGLOBIN 29.9 pg (27.0-31.0); MEAN CORPUSCULAR HGB CONC 34.2 (31.8-35.4); MEAN CORPUSCULAR VOLUME 87.5 fl (80.0-94.0); MONOCYTES # (AUTO) 1.1 K/uL (0.4-2.0); NEUTROPHILS # (AUTO) 4.8 K/ul (2.0-6.9); NEUTROPHILS % (AUTO) 69.7 % (42.2-75.2); PLATELET COUNT 161 10^3/uL (140-440); RDW COEFFICIENT OF VARIATION 14.6 % (11.6-14.8); RED BLOOD COUNT 3.44 10^6/ul (4.70-6.10); WHITE BLOOD COUNT 6.92 K/ul (4.2-10.2)
[2023-04-24 05:52] LABS: ALANINE AMINOTRANSFERASE 10.7 U/L (0-50); ALBUMIN 3.12 g/dL (3.5-5.0); ALKALINE PHOSPHATASE 58.6 U/L (56-119); ASPARTATE AMINO TRANSFERASE 26.4 U/L (17-59); BILIRUBIN,TOTAL 0.66 mg/dL (0.2-1.3); BLOOD UREA NITROGEN 5.1 mg/dL (9-20); CALCIUM 8.46 mg/dL (8.4-10.2); CARBON DIOXIDE 26.5 mmol/L (22-30.0); CHLORIDE 97.7 mmol/L (98-107); CREATININE 0.55 mg/dL (0.60-1.10); GLUCOSE 91.9 mg/dL (74-106); POTASSIUM 3.5 mmol/L (3.5-5.1); SODIUM 129.8 mmol/L (134.5-145); TOTAL PROTEIN 6.04 g/dL (6.3-8.2)
[2023-04-24] MEDS: SYNTHROID PO SCH ×2 (06:08→06:09)
[2023-04-24] MEDS ORDERED: LEVOTHYROXINE 125 MCG PO SCH (09:00)
[2023-04-24] MEDS: TYLENOL PO PRN ×3 (09:00→18:05)
[2023-04-24] MEDS: DEPAKOTE PO SCH ×2 (09:01→20:32)
[2023-04-24] MEDS: DITROPAN PO SCH (09:01)
[2023-04-24] MEDS: TOPROL XL PO SCH (09:01)
[2023-04-24] MEDS: PROSCAR PO SCH (09:02)
[2023-04-24] MEDS: SODIUM CHLORIDE PO SCH ×4 (09:02→20:32)
[2023-04-24] MEDS: LEVAQUIN 750 MG/150 ML D5W 750 MG/150 ML BAG IV SCH (09:03)
[2023-04-24] MEDS: ASPIRIN EC PO SCH (09:17)
--- NOTE | 2023-04-24 09:38 | PCM.PROG ---
Date/Time Seen Date Seen by Provider: 04/24/23 Time Seen by Provider: 09:00 Provider [facility] Chief Complaint Chief Complaint: PNEUMONIA, HYPONATREMIA, POSS METASTATIC PROSTATE Subjective Subjective: Coughing while attempting to swallow medications. Family at bedside. No other complaints or concerns. No events overnight. Objective Appearance: Positive No Apparent Distress and Alert and Oriented x3 Chest/Lungs: Positive Symmetrical With Equal Breath Sounds, Clear to Auscultation Bilaterally and Good Air Movement all 4 Lung Danielle Heart: Positive RRR and Pulses Normal GI/: Positive Soft, Nontender and Bowel Sounds Normal Musculoskeletal: Positive Not Examined Neurological: Positive Sensation Intact, Motor intact, Reflexes Intact, Alert, Oriented and Muscle Strength 5/5 in Upper and Lower Extremities Bilaterally Vital Signs Vital Signs: Vital Signs: Last 24 Hours 04/23/23 13:00 04/23/23 14:00 04/23/23 19:00 Temperature 97.6 F Temperature Source Oral Pulse Rate 63 Respiratory Rate 18 Blood Pressure 145/72 H Blood Pressure Mean 96 Blood Pressure Location Right Arm Blood Pressure Position Sitting O2 Sat by Pulse Oximetry 99 Oxygen Delivery Method Room Air Height Weight Telemetry Type Remote Telemetry Remote Telemetry Telemetry Monitoring Continues Continues Telemetry Heart Rate 74 68 EKG CO Interval 0.14 0.18 EKG QRS Interval 0.05 L 0.08 Telemetry Strip Reading SR NSR 04/23/23 20:00 04/23/23 21:46 04/24/23 00:27 Temperature 97.6 F Temperature Source Oral Pulse Rate 72 Respiratory Rate 20 Blood Pressure 156/84 H Blood Pressure Mean 108 Blood Pressure Location Left Arm Blood Pressure Position Supine O2 Sat by Pulse Oximetry 98 Oxygen Delivery Method Room Air Room Air Height 5 ft 9 in Weight 148 lb 9 oz Telemetry Type Telemetry Monitoring Telemetry Heart Rate EKG CO Interval EKG QRS Interval Telemetry Strip Reading 04/24/23 01:00 04/24/23 05:57 04/24/23 06:00 Temperature 97.7 F Temperature Source Oral Pulse Rate 76 Respiratory Rate 20 Blood Pressure 154/91 H Blood Pressure Mean 112 Blood Pressure Location Left Arm Blood Pressure Position Supine O2 Sat by Pulse Oximetry 98 Oxygen Delivery Method Room Air Height Weight 143 lb Telemetry Type Remote Telemetry Telemetry Monitoring Continues Telemetry Heart Rate 72 EKG CO Interval 0.18 EKG QRS Interval 0.08 Telemetry Strip Reading NSR Lab Results Lab Results: Lab Results: Last 24 Hours 04/24/23 04/23/23 04/23/23 05:18 22:00 16:00 WBC 6.92 RBC 3.44 L Hgb 10.3 L Hct 30.1 L MCV 87.5 MCH 29.9 MCHC 34.2 RDW Coeff of Angelita 14.6 Plt Count 161 Immature Gran % (Auto) 0.3 Neut % (Auto) 69.7 Lymph % (Auto) 12.7 [place] % (Auto) 16.0 H Eos % (Auto) 0.9 Baso % (Auto) 0.4 Neut # (Auto) 4.8 Lymph # (Auto) 0.9 [place] # (Auto) 1.1 Eos # (Auto) 0.1 Baso # (Auto) 0.0 Immature Gran # (Auto) 0.0 Sodium 129.8 L 126.0 L 123.6 L Potassium 3.50 3.50 3.83 Chloride 97.7 L 94.0 L 90.1 L Carbon Dioxide 26.5 25.0 26.8 Anion Gap 9.10 10.50 10.53 BUN 5.1 L 6.0 L 8.9 L Creatinine 0.55 L 0.60 0.55 L Estimated GFR (MDRD) 142.00 128.00 142.00 BUN/Creatinine Ratio 9.27 10.00 16.18 Glucose 91.9 95.0 96.6 Calcium 8.46 8.40 8.35 L Total Bilirubin 0.66 AST 26.4 ALT 10.7 Alkaline Phosphatase 58.6 Total Protein 6.04 L Albumin 3.12 L Globulin 2.92 Albumin/Globulin Ratio 1.06 Additional Comments Additional Comments: I have independently reviewed and interpreted the labs/EKGs/imaging ordered during this hospital stay. I have reviewed outside records that are available in our EMR that pertain to medical stay including imaging/notes/labs from previous visits. Active Medications Active Medications: Medications Generic Name Dose Route Start Last Admin Trade Name Freq PRN Reason Stop Dose Admin Acetaminophen 650 mg 04/23/23 08:30 04/24/23 09:00 Acetaminophen 325 Mg Tablet PO 650 mg Q4H PRN Administration Mild Pain Aspirin 81 mg 04/24/23 07:30 04/24/23 09:17 Aspirin 81 Mg Tablet. PO 81 mg DAILY@0730 ISAURO Administration Divalproex Sodium 1,000 mg 04/23/23 21:00 04/23/23 20:20 Divalproex Sodium 250 Mg Tablet. PO 1,000 mg BEDTIME ISAURO Administration Divalproex Sodium 500 mg 04/24/23 09:00 04/24/23 09:01 Divalproex Sodium 250 Mg Tablet. PO 500 mg DAILY ISAURO Administration Finasteride 5 mg 04/24/23 09:00 04/24/23 09:02 Finasteride 5 Mg Tablet PO 5 mg DAILY ISUARO Administration Levofloxacin/Dextrose 750 mg in 150 mls @ 100 mls/hr 04/23/23 09:00 04/24/23 09:03 Levaquin 750 Mg/150 Ml D5w IV 04/26/23 08:59 100 mls/hr DAILY ISAURO Administration Levothyroxine Sodium 100 mcg 04/24/23 06:00 04/24/23 06:09 Levothyroxine Sodium 100 Mcg Tablet PO 100 mcg DAILY@0600 ISAURO Administration Levothyroxine Sodium 25 mcg 04/24/23 06:00 04/24/23 06:08 Levothyroxine Sodium 25 Mcg Tablet PO 25 mcg DAILY@0600 ISAURO Administration Metoprolol Succinate 50 mg 04/24/23 09:00 04/24/23 09:01 Metoprolol Succinate 50 Mg Tab.Er.24h PO 50 mg DAILY ISAURO Administration Oxybutynin Chloride 5 mg 04/24/23 09:00 04/24/23 09:01 Oxybutynin Chloride 5 Mg Tablet PO 5 mg DAILY ISAURO Administration Pravastatin Sodium 20 mg 04/23/23 21:00 04/23/23 20:20 Pravastatin Sodium 20 Mg Tablet PO 20 mg BEDTIME ISAURO Administration Sodium Chloride 1 syr 04/23/23 06:42 0.9% Sodium Chloride 10 Ml Disp.Syrin IVF PRN PRN To flush IV Sodium Chloride 1 gm 04/23/23 18:30 04/24/23 09:02 Sodium Chloride 1 Gm Tablet PO 1 gm QID ISAURO Administration Plan Plan: 1. Severe Hyponatremia - Improving, near baseline per PCP records, stopping 3% saline @ 30mL/hr due to CHF history, started on salt tabs QID, serial bmps, telemetry, checking osmolalities 2. Community Acquired Pneumonia - R lung, levaquin ordered 3. 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 CHF, unknown type - holding diuretics at this time due to #1, I&O, daily weight, SANDY hose 5. Hypertension - chronic, stable, continue home medications 6. Hyperlipidemia - chronic, continue home medications 7. Weakness/Debility/Frequent Falls - PT/OT to eval and treat DVT Prophylaxis: Ambulation Family has made arrangements for evaluation for admission to assisted living upon discharge if patient qualifies. Plan to discharge tomorrow once arrangements are made. Review Statement Review Statement: I have personally discussed and reviewed the patient's visit/currently labs/imaging/decision making with Dr. Preciado, my supervising attending. Greater that 50 minutes spent with patient, 50% of the time spent with this patient was devoted to counseling and coordination of care.
[2023-04-24 14:30] LABS: BLOOD UREA NITROGEN 6.8 mg/dL (9-20); CALCIUM 8.69 mg/dL (8.4-10.2); CHLORIDE 96.3 mmol/L (98-107); CREATININE 0.59 mg/dL (0.60-1.10); GLUCOSE 107.7 mg/dL (74-106); POTASSIUM 3.89 mmol/L (3.5-5.1); SODIUM 130.3 mmol/L (134.5-145)
[2023-04-24] MEDS: PRAVACHOL PO SCH (20:33)
[2023-04-24 21:17] VITALS: RESP 18
[2023-04-25 05:11] LABS: BASOPHILS % (AUTO) 0.5 % (0.0-3.0); EOSINOPHILS # (AUTO) 0.1 K/ul (0.0-0.7); EOSINOPHILS % (AUTO) 2.2 % (0.0-7.0); HEMATOCRIT 30.2 % (42.0-52.0); IMMATURE GRANULOCYTE % (AUTO) 0.3 % (0.0-5.0); LYMPHOCYTES # (AUTO) 0.8 K/uL (0.60-3.4); MEAN CORPUSCULAR HEMOGLOBIN 29.4 pg (27.0-31.0); MEAN CORPUSCULAR HGB CONC 33.1 (31.8-35.4); MEAN CORPUSCULAR VOLUME 88.8 fl (80.0-94.0); MONOCYTES # (AUTO) 1.3 K/uL (0.4-2.0); MONOCYTES % (AUTO) 20.1 (0-10); NEUTROPHILS # (AUTO) 4.1 K/ul (2.0-6.9); NEUTROPHILS % (AUTO) 63.9 % (42.2-75.2); PLATELET COUNT 165 10^3/uL (140-440); RDW COEFFICIENT OF VARIATION 14.7 % (11.6-14.8); WHITE BLOOD COUNT 6.33 K/ul (4.2-10.2)
[2023-04-25] MEDS: SYNTHROID PO SCH ×2 (05:18)
[2023-04-25 05:22] LABS: ALANINE AMINOTRANSFERASE 10.4 U/L (0-50); ALBUMIN 2.95 g/dL (3.5-5.0); ALKALINE PHOSPHATASE 53.1 U/L (56-119); ASPARTATE AMINO TRANSFERASE 25.2 U/L (17-59); BILIRUBIN,TOTAL 0.54 mg/dL (0.2-1.3); BLOOD UREA NITROGEN 8.9 mg/dL (9-20); CALCIUM 8.62 mg/dL (8.4-10.2); CARBON DIOXIDE 28.2 mmol/L (22-30.0); CHLORIDE 95.9 mmol/L (98-107); CREATININE 0.57 mg/dL (0.60-1.10); GLUCOSE 93.8 mg/dL (74-106); POTASSIUM 3.73 mmol/L (3.5-5.1); SODIUM 128.9 mmol/L (134.5-145); TOTAL PROTEIN 5.74 g/dL (6.3-8.2)
[2023-04-25 05:41] VITALS: BP 154/79; PULSE 76; TEMP 98.6
[2023-04-25] MEDS: ASPIRIN EC PO SCH (08:01)
[2023-04-25] MEDS: LEVAQUIN 750 MG/150 ML D5W 750 MG/150 ML BAG IV SCH (09:33)
[2023-04-25] MEDS: DEPAKOTE PO SCH (09:35)
[2023-04-25] MEDS: SODIUM CHLORIDE PO SCH ×2 (09:35→12:32)
[2023-04-25] MEDS: DITROPAN PO SCH (09:37)
[2023-04-25] MEDS: PROSCAR PO SCH (09:37)
[2023-04-25] MEDS: TOPROL XL PO SCH (09:37)
[2023-04-25] MEDS: TYLENOL PO PRN (09:41)
--- NOTE | 2023-04-25 11:14 | DCSUM ---
Admission Date Admission Date: 04/23/23 Discharge Date Discharge Date: 04/25/23 Admission Diagnosis Admission Diagnosis: 1. Severe Hyponatremia 2. Community Acquired Pneumonia 3. Metastatic Disease of Spine 4. CHF, unknown type 5. Hypertension 6. Hyperlipidemia 7. Weakness/Debility/Frequent Falls Discharge Diagnosis Discharge Diagnosis: 1. Severe Hyponatremia - Resolved 2. Community Acquired Pneumonia - Improving 3. Metastatic Disease of Spine - Stable 4. CHF, unknown type - Stable 5. Hypertension - Stable 6. Hyperlipidemia - Stable 7. Weakness/Debility/Frequent Falls - Stable Hospital Provider Hospital Provider: VALERIE BABB, [facility] [place] Primary Care Physician Primary Care Physician: LYDIA BEARDEN Summary of History and Physical Summary of History and Physical: 83 yo male presented to the ER following multiple falls at home. Most recently fell last night getting up to use the bathroom. Fell backwards onto both elbows. Denies hitting his head or loss of consciousness. Incidentally, pneumonia was reported on chest CT. Patient reports cough but no other symptoms. Denies fever, shortness of breath, chest pain, N/V/D. CT of lumbar spine showed 0.7 cm sclerotic lesion at the L5 verbral body suspicious for metastatic disease. Daughter/POA voiced concerns of safety in the home due to worsening mental status and physical condition. Hospital Course Subjective: He was found to have hyponatremia in the low 120s. His baseline is anywhere from 129-131 due to diuretic use per daughter. He was given 3% saline @ 30mL/hr over a 24 hour period which increased sodium to upper 120s. He was also started on salt tabs QID. Osmolalities were collected. Patient was treated for pneumonia with levaquin and tolerated well. His CT of lumbar spine showed concern for metastatic disease in which the daughter is discussing with PCP further work-up plans upon discharge. He was receiving PT/OT throughout his stay and it is recommended that he continue to help with his balance and weakness upon discharge. All home medications resumed. No changes. Appearance: Pleasant, No Apparent Distress and Alert HEENT: MMM and Supple CVS: No Murmur Abdomen: Soft Respiratory: No Dyspnea Extremities: No Edema Vital Signs: Most Recent Vital Signs Temperature 98.6 F 04/25/23 05:40 Temperature Source Oral 04/25/23 05:40 Temperature Source Infrared 04/23/23 04:50 Pulse Rate 76 04/25/23 05:40 Respiratory Rate 18 04/25/23 05:40 Blood Pressure 154/79 H 04/25/23 05:40 Blood Pressure Mean 104 04/25/23 05:40 Blood Pressure Left Arm 157/78 04/23/23 09:09 Blood Pressure Location Left Arm 04/25/23 05:40 Blood Pressure Position Sitting 04/25/23 05:40 O2 Sat by Pulse Oximetry 97 04/25/23 05:40 Oxygen Delivery Method Room Air 04/25/23 05:40 Height 5 ft 9 in 04/24/23 00:27 Weight 141 lb 1 oz 04/25/23 05:10 Telemetry Type Remote Telemetry 04/25/23 07:00 Telemetry Monitoring Continues 04/25/23 07:00 Telemetry Heart Rate 73 04/25/23 07:00 EKG IN Interval 0.14 04/25/23 07:00 EKG QRS Interval 0.08 04/25/23 07:00 Telemetry Strip Reading NSR 04/25/23 07:00 Lab Results Last 24 Hours: 04/25/23 04/24/23 05:03 14:15 WBC 6.33 RBC 3.40 L Hgb 10.0 L Hct 30.2 L MCV 88.8 MCH 29.4 MCHC 33.1 RDW Coeff of Angelita 14.7 Plt Count 165 Immature Gran % (Auto) 0.3 Neut % (Auto) 63.9 Lymph % (Auto) 13.0 Crook % (Auto) 20.1 H Eos % (Auto) 2.2 Baso % (Auto) 0.5 Neut # (Auto) 4.1 Lymph # (Auto) 0.8 Crook # (Auto) 1.3 Eos # (Auto) 0.1 Baso # (Auto) 0.0 Immature Gran # (Auto) 0.0 Sodium 128.9 L 130.3 L Potassium 3.73 3.89 Chloride 95.9 L 96.3 L Carbon Dioxide 28.2 25.0 Anion Gap 8.53 12.89 BUN 8.9 L 6.8 L Creatinine 0.57 L 0.59 L Estimated GFR (MDRD) 136.00 131.00 BUN/Creatinine Ratio 15.61 11.52 Glucose 93.8 107.7 H Calcium 8.62 8.69 Total Bilirubin 0.54 AST 25.2 ALT 10.4 Alkaline Phosphatase 53.1 L Total Protein 5.74 L Albumin 2.95 L Globulin 2.79 Albumin/Globulin Ratio 1.05 Discharge Instructions Discharge Planning: Discharge Planning > 40 minutes If patient is discharged with left ventricular systolic dysfunction: NA Discharged with a beta xena? [] If no, why not? [] Discharged with an julia/arb? [] If no, why not? [] Activity as tolerated Regular diet Start taking salt tabs for times a day Complete course of antibiotics for pneumonia. PT/OT YOU HAVE A HOSPITAL FOLLOW UP WITH DR. CAMPBELL'S OFFICE ON AT 10:50AM. SHOULD YOU HAVE ANY QUESTIONS OR NEED TO RESCHEDULE YOU CAN CONTACT THEIR OFFICE AT [phone]. Discharge Medications: Medications at Discharge (Home Meds & RX) amlodipine 5 mg tablet 5 mg PO DAILY 11/25/13 aspirin 81 mg tablet,delayed release 81 mg PO DAILYWM 11/25/13 divalproex 500 mg tablet,delayed release 500 mg PO TID 11/25/13 finasteride 5 mg tablet 5 mg PO DAILY 11/25/13 levothyroxine 125 mcg tablet 125 mcg PO DAILY 11/25/13 multivitamin (Daily Multi-Vitamin tablet) 1 ea PO DAILY 11/25/13 pravastatin 20 mg tablet 20 mg PO BEDTIME 11/25/13 tamsulosin 0.4 mg capsule 0.4 mg PO DAILY 11/25/13 acetaminophen 500 mg capsule 1,000 mg PO TID 04/23/23 divalproex 500 mg tablet,delayed release (Depakote) 1,000 mg PO BEDTIME 04/23/23 divalproex 500 mg tablet,delayed release (Depakote) 500 mg PO DAILY 04/23/23 furosemide 20 mg tablet (Lasix) 20 mg PO MOWEFR takes once a day on saturday, saturday,saturday04/23/23 levocetirizine 5 mg tablet 5 mg PO DAILY 04/23/23 metoprolol succinate 50 mg tablet,extended release 24 hr 50 mg PO DAILY 04/23/23 oxybutynin chloride 5 mg tablet 5 mg PO DAILY 04/23/23 levofloxacin 750 mg tablet 750 mg PO Q24H #7 tabs 04/25/23 sodium chloride 1,000 mg soluble tablet 1,000 mg PO QID #90 tabs 04/25/23 Discharge Plan Discharge Discharge Orders: Discharge Patient (ONCE); Ordered 04/25/23 Ordered By: SANTOS PLUNKETT Activity Restrictions/Additional Instructions: Activity as tolerated Regular diet Start taking salt tabs for times a day Complete course of antibiotics for pneumonia. PT/OT YOU HAVE A HOSPITAL FOLLOW UP WITH DR. CAMPBELL'S OFFICE ON SATURDAY, AT 10:50AM. SHOULD YOU HAVE ANY QUESTIONS OR NEED TO RESCHEDULE YOU CAN C ONTACT THEIR OFFICE AT [phone]. Instructions: Hyponatremia (GEN), Bacterial Pneumonia (GEN) Patient Disposition: DISCHARGE TO [facility]IST [facility]IV[facility] Prescriptions: New levofloxacin 750 mg tablet 750 mg PO Q24H Qty: 7 0RF sodium chloride 1,000 mg tablet,soluble 1,000 mg PO QID Qty: 90 0RF Continued multivitamin [Daily Multi-Vitamin] 1 EACH tablet 1 ea PO DAILY amlodipine 5 MG tablet 5 mg PO DAILY divalproex 500 MG tablet,delayed release (DR/EC) 500 mg PO TID aspirin 81 MG tablet,delayed release (DR/EC) 81 mg PO DAILYWM tamsulosin 0.4 MG capsule 0.4 mg PO DAILY levothyroxine 125 MCG tablet 125 mcg PO DAILY pravastatin 20 MG tablet 20 mg PO BEDTIME finasteride 5 MG tablet 5 mg PO DAILY furosemide [Lasix] 20 mg tablet 20 mg PO MOWEFR levocetirizine 5 mg tablet 5 mg PO DAILY divalproex [Depakote] 500 mg tablet,delayed release (DR/EC) 500 mg PO DAILY divalproex [Depakote] 500 mg tablet,delayed release (DR/EC) 1,000 mg PO BEDTIME oxybutynin chloride 5 mg tablet 5 mg PO DAILY acetaminophen 500 mg capsule 1,000 mg PO TID metoprolol succinate 50 mg tablet extended release 24 hr 50 mg PO DAILY Did you review [place] [employer]ENTICE for ALL controlled substances?: No Discussed opioids are addictive and Narcan is available by prescription or from pharmacy.: No Condition: Stable
[2023-04-26 06:12] LABS: OSMOLALITY,URINE 275 mOsmol/kg (.)
[2023-04-26 19:09] LABS: SERUM OSMOLALITY 255 mOsmol/kg (280-301)
== END 2023-04-25 13:05 | disposition home or self-care (01) | DRG 640 ==
LOC: ED 04:49 → MEDSURG B 08:28
PROVIDERS: ADMIT Nurse Practitioner Family; ATTEND Nurse Practitioner Family
DX: Y92.009 Unspecified place in unspecified non-institutional (private) residence as the place of occurrence of the external cause; R29.6 Repeated falls; C79.51 Secondary malignant neoplasm of bone; Z79.899 Other long term (current) drug therapy; Z87.891 Personal history of nicotine dependence; E87.1 Hypo-osmolality and hyponatremia; Z91.81 History of falling; Z51.81 Encounter for therapeutic drug level monitoring; Z98.890 Other specified postprocedural states; C61 Malignant neoplasm of prostate; Y99.9 Unspecified external cause status; Y93.9 Activity, unspecified; M62.81 Muscle weakness (generalized); S50.01XA Contusion of right elbow, initial encounter; I11.0 Hypertensive heart disease with heart failure; I50.9 Heart failure, unspecified; W19.XXXA Unspecified fall, initial encounter; R26.81 Unsteadiness on feet; J81.0 Acute pulmonary edema; J18.9 Pneumonia, unspecified organism; S50.02XA Contusion of left elbow, initial encounter; Z79.82 Long term (current) use of aspirin